=== PATIENT | female | born 1985 | race Caucasian/White ===

== ENCOUNTER 2019-05-12 08:06 | Emergency (ER) | payer SELFPAY ==
--- OUTSIDE RECORDS SUMMARY | 2019-05-12 08:09 | XMS REPORT ---
[facility] Address Unknown Phone Unavailable Care Team Providers Care [employer] Molder Name Role Phone Unavailable Unavailable Payers Payer Name Policy Type Policy Number Effective Date Expiration Date Problems This patient has no known problems. Allergies, Adverse Reactions, Alerts Allergy Name Allergy Type Status Severity Reaction(s) Onset Date Inactive Date Treating Clinician Comments Sulfa (Sulfonamide Antibiotics) DA Active U 2019-05-10 00:00:00 neomycin DA Active U 2019-05-10 00:00:00 bacitracin DA Active U 2019-05-10 00:00:00 trazodone DA Active U 2019-05-10 00:00:00 diphenhydramine DA Active U 2019-05-10 00:00:00 polymyxin B DA Active U 2019-05-10 00:00:00 Medications This patient has no known medications. Results Test Description Test Time Test Comments Text Results Atomic Results Result Comments PROTHROMBIN TIME 2019-05-10 22:58:00 PROTHROMBIN TIME PATIENT (test code=PTP) 11.2 seconds 9.0-14.0 INTERNATIONAL NORMAL RATIO (test code=INR) 0.9 0.8-1.2 The therapeutic range for oral anticoagulant therapy formost indications is an international normalized ratio (INR)of between 2.0 and 3.0. The recommended therapeutic INRrange for various clinical situations is listed below: Clinical Situation INR range Pulmonary e mbolism treatment (2.0-3.0)Venous thrombosis treatmentVenous thrombosis prophylaxis (high risk surgery)Prevention of systemic embolism from: Acute myocardial infarction Valvular heart disease Atrial fibrillation Mechanical prosthetic heart valves (2.5-3.5) IS PATIENT ON ANTICOAGULANTS? NTHROMBOPLASTIN TIME [id number] 22:58:00* Test Item Value Reference Range Comments THROMBOPLASTIN TIME PARTIAL (test code=PTT) 35.1 seconds 25.0-36.5 IS PATIENT ON ANTICOAGULANTS? NBASIC METABOLIC [id number] 22:56:00* Test Item Value Reference Range Comments SODIUM (test code=NA) 144 mmol/L 136-145 POTASSIUM (test code=K) 4.1 mmol/L 3.5-5.1 CHLORIDE (test code=CL) 114.0 mmol/L 98-107 CARBON DIOXIDE (test code=CO2) 24.0 mmol/L 21-32 ANION GAP (test code=GAP) 10.1 10-20 GLUCOSE (test code=GLU) 89 mg/dL 74-106 BLOOD UREA NITROGEN (test code=BUN) 17 mg/dL 7-18 GLOMERULAR FILTRATION RATE (test code=GFR) > 60 mL/min >=60 Estimated GFR by using Modified MDRD formula.Chronic kidney disease is defined as either kidney damageor GFR <60 mL/min/1.73 m2 for >3 months. CREATININE (test code=CREAT) 1.00 mg/dL 0.55-1.02 Note change in reference range due to change in reagent. BUN/CREATININE RATIO (test code=BUN/CREA) 16.2 10-20 CALCIUM (test code=CA) 8.8 mg/dL 8.5-10.1 HCG SERUM [id number] 22:43:00* Test Item Value Reference Range Comments HCG SERUM QUAL (test code=HCGQL) NEGATIVE NEGATIVE This HCGQL test is NOT applicable for MALE patients.Check with nurse about probable order error.If Tumor Marker Test needed, nurse should order test "HCGTU"(Test #[id number]) BASIC METABOLIC [id number] 22:43:00* Test Item Value Reference Range Comments SODIUM (test code=NA) 144 mmol/L 136-145 POTASSIUM (test code=K) 4.1 mmol/L 3.5-5.1 CHLORIDE (test code=CL) 114.0 mmol/L 98-107 CARBON DIOXIDE (test code=CO2) mmol/L 21-32 ANION GAP (test code=GAP) 10-20 GLUCOSE (test code=GLU) mg/dL 74-106 BLOOD UREA NITROGEN (test code=BUN) mg/dL 7-18 GLOMERULAR FILTRATION RATE (test code=GFR) mL/min >=60 CREATININE (test code=CREAT) mg/dL 0.55-1.02 BUN/CREATININE RATIO (test code=BUN/CREA) 10-20 CALCIUM (test code=CA) mg/dL 8.5-10.1 CBC W/O [id number] 22:39:00* Test Item Value Reference Range Comments WHITE BLOOD CELL (test code=WBC) 5.6 K/mm3 4.5-12.5 RED BLOOD CELL (test code=RBC) 4.04 mill/mm3 3.7-5.2 HEMOGLOBIN (test code=HGB) 12.3 gram/dL 11.5-15.5 HEMATOCRIT (test code=HCT) 36.9 % 36.0-46.0 MEAN CELL VOLUME (test code=MCV) 91.3 fL 80-98 MEAN CELL HGB (test code=MCH) 30.4 picogram 27.0-33.0 MEAN CELL HGB CONCETRATION (test code=MCHC) 33.3 gram/dL 33.0-36.0 RED CELL DISTRIBUTION WIDTH (test code=RDW) 12.9 % 11.6-16.2 PLATELET COUNT (test code=PLT) 171 K/mm3 150-450 MEAN PLATELET VOLUME (test code=MPV) 11.0 fL 6.7-11.0 - XR TIBIA/FIBULA 2 V [id number] 22:13:00 FAX: Janiya Garsia DIRECTOR OF [employer] [place]: [address] St: REG Name: SIMON LYNN [facility] : [birth year] Age/S: 33/F [address] Unit #: [id number] Loc: [place] [address] Phys: Janiya Garsia NP Acct: [id number] Dis Date: Status: REG ER PHONE #: [phone] Exam Date: 05/10/20192146 FAX #: [phone] Reason: left knee tenderness and swelling EXAMS: CPT CODE: [id number] XR TIBIA/FIBUL[place] 2 [place] [id number] EXAM: Left knee, 3 views and left tibia and fibula, 4 views; INFORMATION: Left knee tenderness and p ain; FINDINGS: Normal shape and structure of the imaged bone s; no evidence of fracture or dislocation; no soft tissue abnormali ties. IMPRESSION: No evidence of acute osseous trauma or other pathological changes. No radiopaque foreign body. at 2213 Reported and signed by: Shahid Hughes M.D. CC: Janiya Garsia NP Technologist: ZOEY RHODES(Pierre) Trnscrd Date/Time/By: 05/10/2019 (2212) : By: TejaGRW Orig Print D/T: S: 05/10/2019 (6) PAGE 1 Signed Report - XR KNEE 3 V LT 2019-05-10 22:13:00 FAX: Janiya Garsia NP [place]: [address]: REG Name: SIMON LYNN [facility] : [birth year] Age/S: 33/F [address] Unit #: [id number] Loc: [place] [address] Phys: Janiya Garsia NP Acct: [id number] Dis Date: Status: REG ER PHONE #: [phone] Exam Date: 05/10/20192141 FAX #: [phone] Reason: left knee tenderness and swelling EXAMS: CPT CODE: [id number] XR KNEE 3 V LT [id number] EXAM: Left knee, 3 views and left tibia and fibula, 4 views; INFORMATION: Left knee tenderness and p ain; FINDINGS: Normal shape and structure of the imaged bone s; no evidence of fracture or dislocation; no soft tissue abnormali ties. IMPRESSION: No evidence of acute osseous trauma or other pathological changes. No radiopaque foreign body. at 2213 Reported and signed by: Shahid Hughes M.D. CC: Janiya Garsia NP Technologist: ZOEY RHODES(Pierre) Trnscrd Date/Time/By: 05/10/2019 (2212) : By: Von Orig Print D/T: S: 05/10/2019 (5956) PAGE 1 Signed Report
--- NOTE | 2019-05-12 08:35 | NUR ---
PT THOUGHT THIS WAS AN URGENT CARE, DIDNT WANT TO SPEND EXTRA MONEY FOR A MINOR VISIT. PT LEFT BEFORE TRIAGE.
== END 2019-05-12 08:43 | disposition left against medical advice (07) ==
LOC: FSED 08:06
DX: M25.559 Pain in unspecified hip (principal)